=== PATIENT | male | born 1975 | race Two or more races ===

== ENCOUNTER 2021-12-03 07:46 | Emergency (ER) | payer OTHER ==
[~2021-12-03] VITALS: Ht 172.7 cm; Wt 117.9 kg
[2021-12-03] MEDS ORDERED: TOPROL XL25 M1 PO (07:54)
[2021-12-03] MEDS ORDERED: COZAAR25 MG PO (07:56)
== END 2021-12-03 13:00 ==
LOC: ER 07:46
DX: S89.82XA Other specified injuries of left lower leg, initial encounter (principal); W19.XXXA Unspecified fall, initial encounter; I10 Essential (primary) hypertension